=== PATIENT | female | born 2000 | race Caucasian/White ===

== ENCOUNTER 2024-02-03 16:33 | Emergency (ER) | payer SELFPAY ==
[2024-02-03 17:41] VITALS: BP 131/68; PULSE 64; RESP 18; TEMP 36.4; O2SAT 96; BMI 24.3
--- NOTE | 2024-02-03 17:50 | ED_ITS ---
Discharge Plan Disposition Patient Disposition: Home, Self-Care Condition: Good Prescriptions Prescriptions: New amoxicillin 875 mg tablet 875 mg PO Q12H Qty: 20 0RF methylprednisolone 4 mg Tablets,Dose Pack 4 mg PO DIRECTED 6 Days Qty: 21 0RF Rx Instructions: Take 1 pack as directed for 6 days ciprofloxacin-dexamethasone 0.3-0.1 % Drops,Suspension 2 drp Ear-Right BID 7 Days Qty: 1 0RF Referrals Follow up/Referrals: Provider,Referral, MD [Primary Care Provider] - See instructions Activity Restrictions/Add. Instructions Additional Instructions/Restrictions: Drink plenty of fluids. Take tylenol or ibuprofen for pain or fever. Take the medications as directed. Follow up with your regular doctor. GO TO THE ER FOR ANY WORSENING SYMPTOMS Clinical Impressions Clinical Impression: Otitis media Instructions Patient Instructions: How to Instill Ear Drops, Middle Ear Infection Print Language Print Language: Bulgarian Discharge ED Provider: Kennedy Ann [facility] General Stated complaint: right earache Mode of Arrival: Ambulatory Source of Information: Patient Time Seen by Provider: 02/03/24 17:39 Description of Symptoms (Recalled from Triage Doc. by RN): STATES SHE LOOKED IN HER EAR AND IT WAS RED, SOME DRAINAGE (CAN NOT THINK OF THE COLOR) HEENT Symptoms (Recalled from RN notes): Yes Resp Symptoms (Recalled from RN notes): No Skin Symptoms (Recalled from RN notes): No MS Symptoms (Recalled from RN notes): No Functional Status (Recalled from RN notes): WNL Related Data Previous Rx's ?Medication ?Instructions ?Recorded amoxicillin 875 mg tablet 875 mg PO Q12H #20 tabs 02/03/24 ciprofloxacin 0.3 %-dexamethasone 2 drp Ear-Right BID 7 days #1 ea 02/03/24 0.1 % ear drops,suspension methylprednisolone 4 mg tablets in 4 mg PO DIRECTED 6 days #21 tabs 02/03/24 a dose pack Allergies Allergy/AdvReac Type Severity Reaction Status Date / Time No Known Allergies Allergy Verified 02/03/24 17:44 Worker's Comp Is this a Worker's Comp case?: No [facility] Disclaimer: The information contained in this section may have been updated after the patient was seen, as this information can be updated by other users. Social History Smoking Status: Never smoker alcohol intake: never current occupational status: employed Travel in the last 8 weeks: None ROS Obtained: Yes All systems reviewed & no additional complaints except as documented Constitutional Constitutional: Denies chills, Reports fever(s) and Reports poor appetite Eyes Eyes: Denies eye discharge ENT Ears, Nose, Mouth, and Throat: Denies ear discharge, Reports otalgia, Denies hearing loss, Denies sinus pain and Reports sore throat Cardiovascular Cardiovascular: Denies chest pain and Denies dyspnea Respiratory Respiratory: Denies chest congestion, Reports cough and Denies dyspnea Gastrointestinal Gastrointestingal: Denies abdominal pain, diarrhea, nausea or vomiting Musculoskeletal Musculoskeletal: Denies arthralgias Integumentary/Breasts Skin/Breast: Denies rash Physical Exam General General appearance: alert and in no apparent distress Head Head exam: atraumatic, normocephalic and normal inspection Eye Eye exam: Present normal appearance; Absent PERRL or EOMI ENT ENT exam: Present mucous membranes moist and normal external ear exam Expanded ENT Exam TM/Canal exam: Bilateral TM: erythema, bulging and effusion Nose exam: Absent sinus tenderness Nasal speculum exam: Bilateral: normal Mouth exam: Present normal external inspection and other; Absent drooling Teeth exam: Present normal inspection Throat exam: Present tonsillar erythema and tonsillomegaly Neck Neck exam: Present normal inspection, full ROM and trachea midline; Absent tenderness, meningismus or lymphadenopathy Chest Chest inspection: Present normal inspection and symmetric chest wall rise; Absent tenderness Respiratory Respiratory exam: Present normal lung sounds bilaterally; Absent respiratory distress, wheezes or stridor Cardiovascular Cardiovascular exam: Present regular rate, normal rhythm and normal heart sounds; Absent tachycardia or irregular rhythm Abdominal Exam Abdominal exam: Present soft and normal bowel sounds; Absent distention, tenderness, guarding, rebound or rigidity Extremities Exam Extremities exam: Present normal inspection and normal capillary refill; Absent tenderness, joint swelling or calf tenderness Back Exam Back exam: Present normal inspection and full ROM; Absent tenderness, CVA tenderness (R) or CVA tenderness (L) Neurological Exam Neurological exam: Present alert, oriented X3, CN II-XII intact, normal gait and reflexes normal; Absent motor sensory deficit Psychiatric Psychiatric exam: Present normal affect and normal mood Skin Skin exam: Present warm, dry, intact and normal color Lymphatic Lymphatic Findings: no adenopathy Medical Decision Making Medical Records Medical records reviewed: No I reviewed the patient's medical records. Screening: Per USPSTF and CDC recommendations, given the prevalence of disease in our region, it is our hospital?s policy to screen for HIV and viral Hepatitis for all patients aged 18 and over and those with ongoing risk factors. Sean Inquiry Pt receiving controlled substance: No Vital Signs: 02/03/24 17:41 Temperature 97.6 F Temperature Source Oral Pulse Rate [Left Radial] 64 Respiratory Rate 18 Blood Pressure [Left Arm] 131/68 Blood Pressure Mean [Left Arm] 89 02 Sat by Pulse Oximetry 96
[2024-02-03 18:01] VITALS: BP 131/68; PULSE 64; RESP 18; TEMP 36.4
== END 2024-02-03 18:05 | disposition home or self-care (01) ==
PROVIDERS: Emergency Provider Nurse Practitioner Family
DX: H66.93 Otitis media, unspecified, bilateral (principal)
CPT/HCPCS: 99212; G0381